=== PATIENT | female | born 1955 | race Two or more races ===

== ENCOUNTER 2020-10-11 08:56 | Outpatient (REF) | payer SELFPAY | END 2020-10-11 08:57 | disposition home or self-care (01) | LOC: HO.SCI 08:56 | PROVIDERS: Visit Provider Nurse Practitioner Family | DX: Z13.89 Encounter for screening for other disorder (principal) ==

== ENCOUNTER 2024-10-19 14:47 | Outpatient (REF) | payer OTHER, SELFPAY ==
--- OUTSIDE RECORDS SUMMARY | 2024-10-19 18:03 | XMS_ITS | Continuity of Care Document ---
Author Organization [facility] Address [address] [place] [address]- Care Team Providers Care Upholstery Estimator Name Role Phone Not on Staff, PCP Primary Care Physician Unavail able Encounter [facility] Date(s): 09/15/24 - 10/15/24 [facility] [address] [place] [id number]- Encounter Type: Triage Allergies, Adverse Reactions, Alerts No Known Medication Allergies Immunizations Given and Recorded Vaccine Date Status Refusal Reason influenza virus vaccine, inactivated 1 05/09/22 Gi don influenza virus vaccine, inactivated 04/16/21 Jermaine rded influenza virus vaccine, inactivated 05/02/20 Jermaine rded influenza virus vaccine, inactivated 09/09/19 Jermaine rded influenza virus vaccine, inactivated 04/22/18 Jermaine rded influenza virus vaccine, inactivated 04/24/17 Jermaine rded influenza virus vaccine, inactivated 04/25/16 Jermaine rded influenza virus vaccine, inactivated 05/01/15 Jermaine rded influenza virus vaccine, inactivated 03/23/12 Jermaine rded influenza virus vaccine, inactivated 03/05/11 Jermaine rded SARS-CoV-2 (COVID-19) mRNA BNT-162b2 vac 04/16/21 Recorded SARS-CoV-2 (COVID-19) mRNA BNT-162b2 vac 09/06/20 Recorded SARS-CoV-2 (COVID-19) mRNA BNT-162b2 vac 08/16/20 Recorded Zoster Vaccine Live 02/08/16 Recorded pneumococcal 23-valent vaccine 03/23/12 Recorded tetanus/diphtheria/pertussis, acel(Tdap) 12/04/10 Recorded 1Result Comment: [facility] [phone] Medications atorvastatin 20 mg oral tablet 1 tablet, By Mouth, Daily, # 90 tablet, 1 Refills, Maintenance, 04/06/24 6:10:00 AM EDT, [facility], 162, cm, 05/09/23 14:35:00 EDT, Height, 67.8, kg, 10/03/22 10:41:00 EDT, Dry Weight Start Date: 04/06/24 Status: Ordered Quantity: 90.0 Unit: tablet Repeat number: 1 fluticasone 50 mcg/inh nasal spray See Instructions, INSTILL 1 SPRAY INTO BOTH NOSTRILS EVERY MORNING, # 16 Gm, 0 Refills, Maintenance, 11/25/23 2:22:00 PM EDT, [facility], 30, INSTILL 1 SPRAY INTO BOTH NOSTRILS EVERY MORNING, 162, cm, 05/09/23 14:35:00 EDT, Height, 67.8, kg, 10/03/22 10:41:00 EDT, Dry Weight Start Date: 11/25/23 Status: Ordered Quantity: 16.0 Unit: g Repeat number: 1 losartan 50 mg oral tablet 1.5 tablet, By Mouth, Daily, needs appt for further refills, # 135 tablet, 0 Refills, Maintenance, 05/26/24 12:43:00 PM EST, [facility], 162, cm, 05/09/23 14:35:00 EDT, Height, 67.8, kg, 10/03/22 10:41:00 EDT, Dry Weight Start Date: 05/26/24 Status: Ordered Quantity: 135.0 Unit: tablet Repeat number: 1 metFORMIN 1000 mg oral tablet 1 tablet, By Mouth, 2 times a day, # 180 tablet, 5 Refills, Maintenance, 03/04/24 11:18:00 AM EDT, [facility]/pharmacy #[id number], 162, cm, 05/09/23 14:35:00 EDT, Height, 67.8, kg, 10/03/22 10:41:00 EDT, Dry Weight Start Date: 03/04/24 Status: Ordered Quantity: 180.0 Unit: tablet Repeat number: 6 naproxen 250 mg oral tablet 250 mg, 1, tablet, By Mouth, Daily, PRN, # 30 tablet, Refills 0, Tot. Refills 0, Maintenance, Pain , Moderate, 11/19/22 8:46:00 AM EDT, Route to Pharmacy Electronically, [facility], Partial fill upon patient request if the prescription is for a schedule II opioid drug., 162, cm, 11/19/22 8:08:00 EDT, Height, 67.8, kg, 10/03/22 10:41:00 EDT, Dry Weight Start Date: 11/19/22 Status: Ordered Quantity: 30.0 Unit: tablet Repeat number: 1 One Touch test strips One Touch test strips, See Instructions, # 100 each, Refills 3, Tot. Refills 3, Maintenance, To check blood sugars once a day, 11/19/22 8:47:00 AM EDT, Supply, 162, cm, 11/19/22 8:08:00 EDT, Height, 67.8, kg, 10/03/22 10:41:00 EDT, Dry Weight Start Date: 11/19/22 Status: Ordered Quantity: 100.0 Unit: each Repeat number: 4 One Touch Ultra 2 Glucose Meter See Instructions, # 1 each, Maintenance, Dx: E11.9 used to test blood sugars once daily, 12/17/22 7:36:00 AM EDT, Supply, 162, cm, 11/19/22 8:08:00 EDT, Height, 67.8, kg, 10/03/22 10:41:00 EDT, Dry Weight Start Date: 12/17/22 Status: Ordered Quantity: 1.0 Unit: each Repeat number: 1 One Touch Ultra Test Strips See Instructions, # 100 each, Refills 2, Tot. Refills 2, Maintenance, DX:E11.9 test blood sugars 1 time daily, 12/25/23 3:17:00 PM EDT, Supply, 162, cm, 05/09/23 14:35:00 EDT, Height, 67.8, kg, 10/03/22 10:41:00 EDT, Dry Weight Start Date: 12/25/23 Status: Ordered Quantity: 100.0 Unit: each Repeat number: 3 One Touch UltraSoft Lancets See Instructions, # 100 each, Refills 11, Tot. Refills 11, Maintenance, Dx E11.9 used to test bloodsugars once daily, 12/17/22 7:37:00 AM EDT, Supply, 162, cm, 11/19/22 8:08:00 EDT, Height, 67.8, kg,10/03/22 10:41:00 EDT, Dry Weight Start Date: 12/17/22 Stop Date: 12/01/25 Status: Ordered Quantity: 100.0 Unit: each Repeat number: 12 ONETOUCH BLANCA ULTRA BL ONETOUCH BLANCA ULTRA BL, See Instructions, # 50 each, 5 Refills, Maintenance, USE TO CHECK BLOOD SUGARS ONCE A DAY, 12/17/23 9:36:00 PM EDT, 162, cm, 05/09/23 14:35:00 EDT, Height, 67.8, kg, 10/03/22 10:41:00 EDT, Dry Weight Start Date: 12/17/23 Status: Ordered Quantity: 50.0 Unit: each Repeat number: 1 Problem List Condition Confirmation Course Effective Dates Status H ealth Status Informant Hyperlipidemia associated with type 2 diabetes mellitus Confirmed Active Hypertension associated with type 2 diabetes mellitus Confirmed Active Diabetes mellitus, type 2 Confirmed Active Social History Social History Type Response Smoking Status Never (less than 100 in lifetime) entered on: 04/19/21 Sex Sex Representation Female (finding) Patient Care team information Care Team Personnel Name: Not on Staff, PCP Position: S Physician (General Medicine) Member Role: PCP Care Team Related Persons Name: STANFORD CARLSON Insurance Providers Guarantor name: JOSE CARLSON [facility] Information #: 1 Payer: [facility] [employer] Member Number: NA Policy Number: NA Group Number: NA
--- OUTSIDE RECORDS SUMMARY | 2024-10-19 18:03 | XMS_ITS | Clinical Summary ---
Author Organization [facility] Address [address] [place] [address] Phone Care Team Providers Care First Assistant Manager Name Role Phone Fransisca Mcleod MD Primary Care Provider [phone] Allergies No known active allergies Medications losartan (COZAAR) 50 MG tablet Take 1.5 tablets by mouth 1 (one) time each day 12/13/2019 Active atorvastatin (LIPITOR) 20 MG tablet Take 20 mg by mouth 1 (one) time each day 07/14/2020 Active cholecalciferol (VITAMIN D-3) 50 MCG (2000 UT) capsule Take 1 capsule by mouth 1 (one) time each day 01/08/2021 Active metFORMIN (GLUCOPHAGE) 1000 MG tablet Take 1 tablet by mouth 2 (two) times a day 01/05/2021 Active naproxen (NAPROSYN) 250 MG tablet Take 250 mg by mouth if needed for mild pain Active Active Problems Problem Noted Date Diagnosed Date Hypertension 03/14/2021 Chronic kidney disease stage 2 08/30/2020 Essential hypertension 08/30/2020 Renal disorder due to type 2 diabetes mellitus 0 08/30/2020 Immunizations Immunization Administration Dates Next Due Influenza Split High Dose Preservative Free IM 1 07/07/2015,05/03/2015 Family History Medical History Relation Comments Hypertension Mother Relation Status Comments Father Mother Social History Tobacco Use Types Packs/Day Years Used Date Smoking Tobacco: Never Smokeless Tobacco: Never Tobacco Cessation:Counseling Given: Not Answered Alcohol Use Standard Drinks/Week Comments No 0 (1 standard drink = 0.6 oz pur e alcohol) Comments Unknown Sex and Gender Information Value Date Recorded Sex Assigned at Not on file Legal Sex Female 5:06 PM EST Gender Identity Not on file Sexual Orientation Not on file Last Filed Vital Signs Vital Sign Reading Time Taken Comments Blood Pressure 114/60 03/13/2022 2:28 PM EDT Pulse 102 03/13/2022 2:28 PM EDT Temperature - - Respiratory Rate - - Oxygen Saturation 98% 03/14/2021 3:22 PM EDT Inhaled Oxygen Concentration - - Weight 66.4 kg (146 lb 6.4 oz) 03/13/2022 2:28 P M EDT Height 157.5 cm (5' 2 ) 12/01/2019 12:00 PM EDT Body Mass Index 26.78 12/01/2019 12:00 PM EDT Plan of Treatment Health Maintenance Due Date Last Done Comments Breast Cancer Screening 1955 Pneumococcal Vaccine: 50+ Years (1 of 2 - PCV) 1973 Colorectal Cancer Screening: Annual FOBT 2003 Colorectal Cancer Screening: Colonoscopy 2003 Colorectal Cancer Screening: Sigmoidoscopy 2003 Diabetes: Hemoglobin A1C 08/06/2020 020, 10/13/2018 Diabetes: Ophthalmology Exam 08/06/2020 Diabetes: Pedal Pulse Checked 08/06/2020 Diabetes: Sensory Foot Exam 08/06/2020 Diabetes: Visual Foot Exam 08/06/2020 Influenza Vaccine (Season Ended) 2025 05/07/2016, 05/03/2015 Hepatitis B Vaccine Aged Out No longe r eligible based on patient's age to complete this topic Procedures Procedure Name Priority Date/Time Associated Diagnosis Comments BLOOD PANEL (HC) Routine 09/09/2019 12:0 0 AM EST from Last 3 Months or Most Recently Relevant to Health Maintenance Results * (ABNORMAL) Blood Panel (09/09/2019 12:00 AM EST) Sodium 143 137 - 145 mmol/L [facility] Carbon Dioxide (CO2) 29 22 - 30 mmol/L [facility] BUN 13 9 - 20 mg/dl [facility] Cholesterol 167 <200 mg/dl [facility] HDL 58 >40 mg/dl [facility] LDL,Direct 89 <130 mg/dl [facility] Potassium 4.9 3.5 - 5.1 mmol/L [facility] Creatinine 0.6(L) 0.70 - 1.30 mg/dl [facility] Calcium 9.8 8.4 - 10.2 mg/dl [facility] Triglycerides 119 <150 mg/dl [facility] Hemoglobin A1C 7.3(H) <5 % [facility] eGFR Non- 112.4 >60 ml/min [facility] 09/09/2019 us [facility]version [facility] [id number] LICITED RESULTS Final Result [facility] from Last 3 Months or Most Recently Relevant to Health Maintenance Insurance Medicaid [place] [facility] ([id number]) [place] [employer] Dual MCR/DOMI ([id number]) Care Teams First Assistant Manager Relationship Specialty Start Date End Date Fransisca Mcleod MD [address] [place] [phone] PCP - General Internal Medicine 03/14/21
== END 2024-10-19 14:48 | disposition home or self-care (01) ==
LOC: HO.MAMMO 14:47
PROVIDERS: PCP Internal Medicine; Visit Provider Internal Medicine
DX: Z12.31 Encounter for screening mammogram for malignant neoplasm of breast (principal)
CPT/HCPCS: 77063; 77067

== ENCOUNTER → 2024-10-19 15:15 | Outpatient (BNV) | payer OTHER, SELFPAY | PROVIDERS: PCP Internal Medicine; Visit Provider Internal Medicine | DX: Z12.31 Encounter for screening mammogram for malignant neoplasm of breast (principal) | CPT/HCPCS: 77063; 77067 ==

== ENCOUNTER 2024-10-26 09:47 | Outpatient (REF) | payer OTHER, SELFPAY ==
--- NOTE | ~2024-10-26 | XR_ITS ---
EXAMINATION: XR HIP, RIGHT CLINICAL INFORMATION: PAIN COMPARISON: None available. TECHNIQUE: Two views of the right hip. FINDINGS: No fracture, dislocation, or suspicious bone lesion. Hip joint space is maintained. Minimal joint space narrowing with minimal marginal osteophytic spurring consistent with mild osteoarthrosis. Amorphous calcification abutting the greater trochanter and the issue tuberosity, findings suggestive of calcific enthesopathy. Mild degenerative arthritis in the right SI joint and lower lumbar spine, partially imaged. Normal soft tissues. XR/XR hip RT min 2V IMPRESSION: 1. Calcific enthesopathy of the right greater trochanter, as well as the hamstrings insertion. Findings suggest hydroxyapatite deposition. 2. 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 Electronically signed by: Alexander Aquino MD 10/27/2024 09:58 AM EDT
--- OUTSIDE RECORDS SUMMARY | 2024-10-26 11:02 | XMS_ITS | Clinical Summary ---
Author Organization [facility] Address [address] [place] [address] Phone Care Team Providers Care Signal Manager Name Role Phone Fransisca Mcleod MD Primary Care Provider [phone]- [phone] Allergies No known active allergies Medications losartan [...] ml/min [facility] 09/09/2019 us [facility] [id number] LICITED RESULTS Final Result [facility] from Last 3 Months or Most Recently Relevant to Health Maintenance Insurance Medicaid [place] [facility] ([id number]) [place] Dual MCR/DOMI ([id number]) Care Teams Signal Manager Relationship Specialty Start Date End Date Fransisca Mcleod MD [address] [place] [address] PCP - General Internal Medicine 03/14/21
[2024-10-26 11:32] LABS: Estimated Average Glucose 151 mg/dL; Hemoglobin A1C 157.2755 umol/L; Hemoglobin A1c % 6.9 % (<6.0); Total Hemoglobin (HGBA1C) 3020.9272 umol/L
[2024-10-26 12:23] LABS: Alanine Aminotransferase 13 U/L (0-31); Albumin Level 4.1 g/dL (3.5-5.0); Alkaline Phosphatase 90 U/L (39-117); Anion Gap 10 (12-20); Aspartate Amino Transferase 18 U/L (5-31); Bilirubin Total 0.4 mg/dL (0.0-1.0); Blood Urea Nitrogen 21 mg/dL (9-16); Calcium 9.3 mg/dL (8.4-10.2); Carbon Dioxide 27 mmol/L (22-29); Chloride 107 mmol/L (96-108); Estimated Glomerular Filt Rate > 60; Glucose Random 117 mg/dL (60-115); Potassium 4.8 mmol/L (3.3-5.1); Sodium 139 mmol/L (135-145)
== END 2024-10-26 09:48 | disposition home or self-care (01) ==
LOC: HO.LAB 09:47
PROVIDERS: PCP Internal Medicine; Visit Provider Internal Medicine
DX: D51.3 Other dietary vitamin B12 deficiency anemia (principal); E11.9 Type 2 diabetes mellitus without complications; I83.90 Asymptomatic varicose veins of unspecified lower extremity; M54.16 Radiculopathy, lumbar region; M65.4 Radial styloid tenosynovitis [de Quervain]
CPT/HCPCS: 36415; 73502; 80053; 83036

== ENCOUNTER → 2024-10-26 11:20 | Outpatient (BNV) | payer OTHER, MEDICARE, SELFPAY | PROVIDERS: PCP Internal Medicine; Visit Provider Radiology Diagnostic Radiology | DX: M76.891 Other specified enthesopathies of right lower limb, excluding foot (principal) | CPT/HCPCS: 73502 ==

== ENCOUNTER 2024-11-17 10:00 | Outpatient (RCR) | payer OTHER, SELFPAY ==
--- NOTE | 2024-11-04 10:14 | MHC.PT.EP ---
[facility] [place] Office [place] Office [place] Office [address] [phone] F: [phone] F: [phone] F: [phone] F: [phone] Physical Therapy Plan of Care Date of Evaluation: 11/03/24 Date of Surgery: n/a Diagnosis: Lumbar radiculopathy Assessment: Pt is a pleasant and motivated 69yo F who presents to PT with R hip pain with intermittent radiating symptoms into R thigh. She presents to PT with current impairments in pain, decreased hip ROM, decreased strength, soft tissue restrictions, and impaired gait. She is limited functionally by prolonged sitting, sitting crossed leg, prolonged standing, stairs, and laying on her right side. She is an excellent candidate for skilled PT in order to address current impairments to facilitate return to PLOF. She is recommended to be seen 1x/week for 5 weeks Frequency and Duration: The patient will be seen 1x/week for 5 weeks Short Term Goals: Pt will be I with HEP to promote self management of symptoms Pt will achieve R hip ER within 5 degrees of L hip Group Home Goals: Pt will tolerate prolonged sitting > 1 hour without pain Pt will tolerate standing and walking > 1 hour without pain Pt will demonstrate ability to sit on the floor with adequate ROM and without pain for yoga routine Treatment Plan: Modalities to reduce pain, spasms and effusion. Manual therapy to restore motion and function. Therapeutic exercise to improve strength and flexibility. Neuromuscular re-education for posture and balance. Therapeutic activities to return to functional activities of daily living. Electronically signed by: Tiffany De La Vega, PT, DPT Please sign and return to therapist. Thank you for your referral.
--- NOTE | 2025-01-03 10:23 | MHC.PT.DC ---
[facility] [place] Office [place] Office [place] Office [address]al[address] [phone] F: [phone] F: [phone] F: [phone] F: [phone] Physical Therapy Discharge Report Diagnosis: Lumbar radiculopathy Date of Surgery: n/a Date of Evaluation: 11/03/24 Date of Discharge: 01/03/25 Treatments to Date: 3 Cancellations to Date: No Shows to Date: Discharge Status: Improved Function Independent with HEP Discharge Summary: Pt was seen for PT from 11/03/24-11/17/24. Her last attended appointment was 11/17/24. She was making good progress with PT and had a decrease in symptoms. She was independent and compliant with HEP. Her PT chart was left open for 30 days incase she had increase in symptoms, however pt did not call and schedule in that time. She is being D/C from PT at this time Electronically signed by: Tiffany De La Vega, PT, DPT Please sign and return to therapist. Thank you for your referral.
== END 2025-01-03 10:23 | disposition home or self-care (01) ==
LOC: HO.PT 10:00
PROVIDERS: PCP Internal Medicine; Visit Provider Internal Medicine
DX: M54.16 Radiculopathy, lumbar region (principal)
CPT/HCPCS: 97110; 97140; 97161

== ENCOUNTER 2025-01-26 11:41 | Outpatient (REF) | payer OTHER, SELFPAY ==
--- OUTSIDE RECORDS SUMMARY | 2025-01-26 12:33 | XMS_ITS | Clinical Summary ---
Author Organization [facility] Address [address] [place] [address] Phone Care Team Providers Care Breaster Name Role Phone Fransisca Mcleod MD Primary Care Provider [phone]- [phone] Allergies No known active allergies Medications losartan [...] Diabetes: Visual Foot Exam 08/06/2020 Influenza Vaccine (#1) 2025 6, 05/03/2015 Hepatitis B Vaccine Aged Out No [...] ml/min [facility]NMA 09/09/2019 us [facility] Conversion LAB [id number] LICITED RESULTS Final Result [facility] from Last 3 Months or Most Recently Relevant to Health Maintenance Insurance Medicaid [place] [facility] ([id number]) [place] Dual MCR/DOMI ([id number]) Care Teams Breaster Relationship Specialty Start Date End Date Fransisca Mcleod MD [address] [place] [phone] PCP - General Internal Medicine 03/14/21
[2025-01-26 13:01] LABS: MANUAL DIFF FLAG NO
[2025-01-26 13:08] LABS: Hematocrit 33.8 % (37.0-47.0); Hemoglobin 11.1 g/dl (12.0-16.0); Imm Gran Abs Auto 0.02 X10*3/uL (0.00-0.03); Imm Gran Pct Auto 0.3 % (0.0-0.4); Lymphocytes Absolute Auto 1.5 X10*3/uL (1.2-4.9); Mean Corpuscular HGB Conc 32.8 g/dl (31.0-35.0); Mean Corpuscular Hemoglobin 30.7 pg (27.0-33.0); Mean Corpuscular Volume 93.6 fL (80.0-98.0); NRBC Abs Auto 0.000 X10*3/uL (0.0-0.012); NRBC Pct Auto 0.0 /100WBC (0.0-0.2); Platelet Count 289 X10*3/uL (160-400); Red Blood Count 3.61 X10*6/uL (4.20-5.50); White Blood Count 6.1 X10*3/uL (4.8-10.8)
[2025-01-26 13:20] LABS: Hemoglobin A1C 158.7732 umol/L; Total Hemoglobin (HGBA1C) 2989.1605 umol/L
[2025-01-26 13:30] LABS: Alanine Aminotransferase 14 U/L (0-31); Albumin Level 4.4 g/dL (3.5-5.0); Alkaline Phosphatase 93 U/L (39-117); Anion Gap 12 (12-20); Aspartate Amino Transferase 18 U/L (5-31); Blood Urea Nitrogen 21 mg/dL (9-16); Calcium 9.5 mg/dL (8.4-10.2); Carbon Dioxide 24 mmol/L (22-29); Chloride 109 mmol/L (96-108); Cholesterol 152 mg/dL (<200); Estimated Glomerular Filt Rate > 60; HDL Cholesterol 58 mg/dL (>40); Potassium 5.1 mmol/L (3.3-5.1); Sodium 140 mmol/L (135-145); Total Protein 7.6 g/dL (6.5-8.0); Triglycerides 130 mg/dL (<150)
[2025-01-26 14:31] LABS: Microalbum/Creatinine Ratio Ur 48.8 ug/mg cr (<30)
== END 2025-01-26 11:42 | disposition home or self-care (01) ==
LOC: HO.10HDL 11:41
PROVIDERS: Visit Provider Internal Medicine
DX: E11.9 Type 2 diabetes mellitus without complications (principal); E78.00 Pure hypercholesterolemia, unspecified; I10 Essential (primary) hypertension; Z68.29 Body mass index [BMI] 29.0-29.9, adult
CPT/HCPCS: 36415; 80053; 80061; 82043; 82570; 83036; 85025

== ENCOUNTER 2025-04-27 10:28 | Outpatient (REF) | payer OTHER, SELFPAY ==
[2025-04-27 11:30] LABS: MANUAL DIFF FLAG NO
[2025-04-27 11:41] LABS: Hematocrit 34.8 % (37.0-47.0); Hemoglobin 11.4 g/dl (12.0-16.0); Imm Gran Abs Auto 0.02 X10*3/uL (0.00-0.03); Imm Gran Pct Auto 0.4 % (0.0-0.4); Lymphocytes Absolute Auto 1.7 X10*3/uL (1.2-4.9); Mean Corpuscular HGB Conc 32.8 g/dl (31.0-35.0); Mean Corpuscular Hemoglobin 30.6 pg (27.0-33.0); Mean Corpuscular Volume 93.3 fL (80.0-98.0); NRBC Abs Auto 0.000 X10*3/uL (0.0-0.012); NRBC Pct Auto 0.0 /100WBC (0.0-0.2); Platelet Count 288 X10*3/uL (160-400); Red Blood Count 3.73 X10*6/uL (4.20-5.50); White Blood Count 5.3 X10*3/uL (4.8-10.8)
[2025-04-27 12:32] LABS: Alanine Aminotransferase 12 U/L (0-31); Albumin Level 4.4 g/dL (3.5-5.0); Alkaline Phosphatase 95 U/L (39-117); Anion Gap 10 (12-20); Aspartate Amino Transferase 18 U/L (5-31); Blood Urea Nitrogen 18 mg/dL (9-16); Calcium 9.6 mg/dL (8.4-10.2); Carbon Dioxide 29 mmol/L (22-29); Chloride 106 mmol/L (96-108); Cholesterol 155 mg/dL (<200); Estimated Glomerular Filt Rate > 60; HDL Cholesterol 64 mg/dL (>40); Potassium 4.8 mmol/L (3.3-5.1); Sodium 140 mmol/L (135-145); Total Protein 7.2 g/dL (6.5-8.0); Triglycerides 64 mg/dL (<150)
[2025-04-27 12:39] LABS: Microalbum/Creatinine Ratio Ur 507.2 ug/mg cr (<30)
== END 2025-04-27 10:29 | disposition home or self-care (01) ==
LOC: HO.10HDL 10:28
PROVIDERS: Visit Provider Internal Medicine
DX: I10 Essential (primary) hypertension (principal); E11.9 Type 2 diabetes mellitus without complications; E78.00 Pure hypercholesterolemia, unspecified; Z68.29 Body mass index [BMI] 29.0-29.9, adult
CPT/HCPCS: 36415; 80053; 80061; 82043; 82570; 83036; 85025